=== PATIENT | male | born 1955 | race Caucasian/White ===

== ENCOUNTER 2018-10-10 06:01 | Inpatient (IN) | payer BC ==
[2018-10-02 11:19] LABS: Absolute Lymphocytes (CBC) 1.2 K/uL (0.7-4.9); Absolute Monocytes 0.5 K/uL (0.1-1.3); Basophils % 1.4 % (0-1.3); Eosinophils % 4.8 % (0-4.4); Hematocrit 43.8 % (39.6-49.0); Lymphocytes % 24.2 % (15.3-44.8); MPV 8.4 fL (7.6-11.3); Monocytes % 9.1 % (3.3-12.3); RBC Red Blood Cell Count 4.61 M/uL (4.33-5.43)
--- NOTE | 2018-10-02 11:27 | RAD REPORT ---
EXAM DESCRIPTION: Hitesh Chapman And Sydnee (2 Views)10/02/2018 11:08 am CLINICAL HISTORY: Preop for knee replacement COMPARISON: 2017 FINDINGS: Small opacity within the right lung base is unchanged from the prior exam and likely eithe r represents a right basilar lung granuloma or a bone island within the rib. The lungs appear clear of acute infiltrate. The heart is normal size IMPRESSION: No acute abnormalities displayed
[2018-10-02 11:36] LABS: BUN Blood Urea Nitrogen 13 mg/dL (7-18); Bicarbonate 30 mmol/L (21-32); Glucose Level 100 mg/dL (74-106); Potassium 4.3 mmol/L (3.5-5.1); Sodium Level 144 mmol/L (136-145)
--- NOTE | 2018-10-02 14:46 | EKG ---
Test Date: 2018-10-02 Test Time: 10:53:54 Sod Farmer: KENRICK MEASUREMENT RESULTS: Intervals: Rate: 56 CT: 170 QRSD: 104 QT: 442 QTc: 426 [place]: P: 46 CT: 170 QRS: -4 T: 48 INTERPRETIVE STATEMENTS: Sinus bradycardia with occasional premature ventricular complexes Incomplete right bundle branch block Borderline ECG Compared to ECG 07/27/2017 12:51:21 No significant changes Electronically Signed On 10-02-18 14:44:19 METAL SPINNER by Meek Mas
[2018-10-10] MEDS ORDERED: CEFAZOLIN 2GM (PREMIX IV) 2 GM/50 ML BAG ONE (06:32)
[2018-10-10] MEDS ORDERED: Ringers Lactate 1,000 ML IV ONE (06:32)
[2018-10-10] MEDS ORDERED: SCOPOLAMINE HYDROBROMIDE PATCH TD ONE (07:09)
[2018-10-10] MEDS ORDERED: ROPLVACAINE HCL 20 ML ONE (07:11)
[2018-10-10] MEDS ORDERED: FENTANYL CITR 250 MCG/5 ML ONE (07:11)
[2018-10-10] MEDS ORDERED: MIDAZOLAM HCL 2 MG/2 ML INJ ONE (07:11)
[2018-10-10] MEDS ORDERED: ROPIVACAINE HCL 0 ML ONE (07:12)
[2018-10-10] MEDS ORDERED: TRANEXAMIC ACID 1,000 MG in NA CHLORIDE 0.9% 50 ML IV SCH (07:15)
[2018-10-10] MEDS ORDERED: DEXAMETHASONE 4 MG/ML VIAL ONE (07:18)
[2018-10-10] MEDS ORDERED: PROPOFOL 200 MG/20 ML VIAL IV ONE (07:36)
[2018-10-10] MEDS ORDERED: LIDOCAINE 2% MPF 5 ML VIAL ONE (07:37)
[2018-10-10] MEDS: BUPIVACA 0.5%/EPI 0.0005%/PF 30 ML VIAL ONE ×2 (08:22→09:22)
[2018-10-10] MEDS: Ringers Lactate 1,000 ML IV ONE ×2 (09:21→09:27)
--- NOTE | 2018-10-10 10:18 | P.BOP ---
Preoperative diagnosis: left knee osteoarthritis Postoperative diagnosis: same Primary procedure: left total knee arthroplasty Technology Development Intern: NONE,NONE Estimated blood loss: 20 cc Specimen: left knee bone remnants Findings: see dictation Anesthesia: General Complications: None Implants: Biomet CR 80 femur, 83 tibia, 10 mm CR E poly Fluids & blood products: per anesthesia record; TT: 80 mins @ 300 mmHg Transferred to: Recovery Room Condition: Good
[2018-10-10] MEDS ORDERED: ONDANSETRON 4 MG/2 ML VIAL IV PRN (10:19)
[2018-10-10] MEDS ORDERED: DOCUSATE NA 100 MG CAP PO PRN (10:19)
[2018-10-10] MEDS: HYDROMORPHONE HCL 2 MG/ML inj ONE ×3 (10:27→10:50)
[2018-10-10] MEDS ORDERED: KETOROLAC 30 MG/ML INJ ONE (10:46)
[2018-10-10 10:50] LABS: Hematocrit 40.5 % (39.6-49.0)
[2018-10-10] MEDS: HYDROMORPHONE HCL 1 MG/ML INJ ONE ×2 (11:00→11:05)
--- NOTE | 2018-10-10 11:22 | RAD REPORT ---
EXAM DESCRIPTION: RAD - Knee Left 2 View - 10/10/2018 11:11 am CLINICAL HISTORY: Post Op Left total knee arthroplasty. COMPARISON: Knee Left 2 View dated 07/23/2018 FINDINGS: A left total knee arthroplasty is present. Skin dayne are noted anteriorly. A small amou nt of air is present in joint. No unexpected postoperative finding. IMPRESSION: Left TKA.
[2018-10-10 14:45] VITALS: BMI 27.1
[2018-10-10] MEDS: METOPROLOL XL 50 MG TAB PO SCH (17:50)
[2018-10-10] MEDS: CEFAZOLIN/SWI 2gm 2 GM/20 ML SYR IV SCH (17:52)
--- NOTE | 2018-10-10 19:56 | P.OP ---
Preoperative diagnosis: left knee osteoarthritis Postoperative diagnosis: same Primary procedure: left total knee arthroplasty Anesthesia: general Estimated blood loss: 20 cc Specimen: left knee bone remnants Findings: see dictation Operative Technique: Indication For Procedure: Jatin is a 62-year-old female, who presented to my clinic with leftt knee pain due to left knee osteoarthritis. The patient failed conservative treatment measures including home exercises, corticosteroid injections and viscosupplementation injections. He reported continued pain that affect his activities of daily living. He was recommended total knee arthoplasty. Description Of Procedure: After informed consent was obtained, the patient was identified in preop holding area. The left lower extremity was marked. The patient underwent a femoral nerve block performed by Anesthesia. He was then taken back to the operative room and transferred to the operating table in supine fashion and placed under general LMA anesthesia. The left lower extremity was then prepped and draped in usual sterile fashion. A time-out was initiated. Correct patient and procedure were confirmed and identified. The patient had received preoperative prophylactic antibiotics. The left lower extremity was exsanguinated and the tourniquet was inflated to 300 mmHg. Approximately, a 15 cm longitudinal incision was made over the anterior aspect of the knee centered over the patella. A standard median parapatellar approach was taken. The dissection was taken to the extensor mechanism. A median parapatellar arthrotomy was then performed. The patella was then everted and the fat pad and medial and lateral meniscus were excised. A lateral release was performed of the patella and osteophytes were removed using a rongeur. There was minimal cartilage wear on the undersurface of the patella and it was decided to not resurface the patella. Next, attention was taken to the femur, retractors were placed within the knee and the knee was held in flexion. A partial synovectomy was performed over the anterior aspect of the distal femur. A cutting block has been created preoperatively using MRI imaging and the block was then placed over the distal femur and then positioned and was stacked into place and pins were placed within the guide hole in the block. The distal femoral cutting guide was then placed over the pre-placed guide pin and the distal femur was cut after proper confirming using an Chriss wing. After this was performed, the anterior-posterior distal femoral cuts were made as well as the chamfer cut without complication. MCL and lateral remnants were resected as well as patellar tendon with knee retractors. Both remnants were then removed and sent to Pathology. Next attention was taken to the proximal tibia. The soft tissue medially was then elevated off the proximal tibia directly off bone using Bovie electrocautery. Pre-made cutting block was placed over the proximal tibia and once locked into position, pin were placed as well as the alignment ashleigh was used to ensure proper placement of the cutting guide. There was overall good alignment and position of the cutting guide. Pins were then placed. The cutting block was removed. The cutting guide was placed on the proximal tibia and again the chriss wing was then used to ensure proper depth of the cut. An osteotome then used to make cuts around the PCL and the saw was used to cut the proximal tibia and the proximal tibial cut was then removed with the meniscal grasper. Bone fragments were then removed and meniscectomies were completed. Next, the knee was held in 90 degrees of flexion and forward extension and a 10-mm guide was then selected and there was good overall fit and stability in flexion and extension. Next, the trials were placed, size 80 CR femur was placed and a size 83 tibia with a 10 mm poly. The knee was then ranged and had good stability, both in forward flexion and extension and had full range of motion. The knee was ranged and there was good stability of the patella as well as the rest of the knee. The tibia was marked with the Bovie electrocautery. The femur was drilled and once in proper position and the tibia was punched. Trial implants were then removed. The knee was then irrigated thoroughly with pulsed lavage normal saline. A 0.5% Marcaine with epinephrine was then used 30 cc for local anesthetic and to aid with postoperative pain control. The cement was prepared as well as the implant. Size 83 tibia was then placed followed by the size 80 CR femur. Excess cement was then removed using [place] elevator. A 10-mm trial poly was then placed and the knee was held in full extension as the cement hardened. Once the cement was completely hardened, the knee was ranged with good overall stability as well as good flexion and extension. Trial poly ethylene liner was removed and a final 10 mm CR-E poly was placed and locked in position. The knee was again irrigated thoroughly with normal saline. The tourniquet was let down. Hemostasis was achieved with Bovie electrocautery. The extensor mechanism was closed with #1 Vicryl in an interrupted fashion followed by #1 Vicryl in a running fashion. Fascia was then approximated using 0 Vicryl. Subcutaneous tissue was approximated used 2-0 Vicryl and the skin was approximated using dayne. Sterile dressings were applied. The patient was awakened and transferred to PACU in stable condition. Postoperative Plan: He will be weightbearing as tolerated. Physical therapy will aide with mobilization and pain management. CPM machine will be placed in the PACU postoperatively. Complications: None Drain(s): Urinary catheter Implants: Biomet size 80 CR femur, size 83 tibia, 10 mm CR E-poly Fluids & blood products: per anesthesia record; TT: 80 mins @ 300 mmHg Transferred to: Recovery Room Condition: Good
[2018-10-10] MEDS: OXYCODONE *CR* 10 MG TAB PO SCH (20:33)
[2018-10-10] MEDS: ATORVASTATIN 80 MG TAB PO SCH (20:33)
[2018-10-10] MEDS: MORPHINE 4 MG/ML SYR IV PRN (20:59)
[2018-10-10] MEDS: HYDROCODONE/APAP 7.5/325 MG TAB PO PRN (22:26)
[2018-10-11] MEDS: CEFAZOLIN/SWI 2gm 2 GM/20 ML SYR IV SCH ×2 (01:22→09:35)
[2018-10-11] MEDS: MORPHINE 4 MG/ML SYR IV PRN ×2 (01:31→06:00)
[2018-10-11] MEDS: HYDROCODONE/APAP 7.5/325 MG TAB PO PRN ×4 (03:54→16:16)
[2018-10-11] MEDS: ENOXAPARIN 30 MG/0.3 ML SQ SCH ×2 (05:55→17:41)
[2018-10-11 06:23] LABS: Absolute Lymphocytes (CBC) 0.8 K/uL (0.7-4.9); Absolute Monocytes 1.5 K/uL (0.1-1.3); Absolute Neutrophil 8.2 K/uL (1.8-8.0); Basophils % 0.5 % (0-1.3); Eosinophils % 0.2 % (0-4.4); Hematocrit 39.1 % (39.6-49.0); Lymphocytes % 7.7 % (15.3-44.8); MPV 8.3 fL (7.6-11.3); Monocytes % 14.1 % (3.3-12.3); RBC Red Blood Cell Count 4.13 M/uL (4.33-5.43)
[2018-10-11 06:43] LABS: BUN Blood Urea Nitrogen 15 mg/dL (7-18); Bicarbonate 29 mmol/L (21-32); Glucose Level 132 mg/dL (74-106); Potassium 4.4 mmol/L (3.5-5.1); Sodium Level 140 mmol/L (136-145)
[2018-10-11] MEDS ORDERED: MORPHINE 4 MG/ML SYR IV PRN (08:06)
--- NOTE | 2018-10-11 08:09 | P.PN ---
Subjective Date of Service: 10/11/18 Chief Complaint: s/p L TKA Block wore off overnight. Some increased pain this AM. Physical Examination - Vital Signs Temperature: 98.7 F Blood Pressure: 113/60 Pulse: 69 Respirations: 16 Pulse Ox (%): 97 - Physical Exam General: Alert, In no apparent distress Musculoskeletal: Other (LLE: dressing c/d/i; +EHL/FHL/GSC/TA; sensation grossly intact distally) - Studies Laboratory Data (last 24 hrs) 10/11/18 05:27: Sodium 140, Potassium 4.4, BUN 15, Creatinine 0.81, Glucose 132 H 10/11/18 05:27: WBC 10.6 D, Hgb 13.4 L, Hct 39.1 L, Plt Count 169 10/10/18 10:36: Hgb 13.8, Hct 40.5 Assessment And Plan - Plan Jatin is a 62 yo male s/p L TKA POD#1 -PT to mobilize; WBAT LLE -pain control; changed morphine to q 2 hrs; continue with orals including [place]/ oxycontin -lovenox for DVT prophylaxis -PT setup for post discharge
[2018-10-11] MEDS: OXYCODONE *CR* 10 MG TAB PO SCH ×2 (08:25→20:02)
[2018-10-11] MEDS: CELECOXIB 100 MG CAPSULE PO SCH (08:25)
[2018-10-11] MEDS: METOPROLOL XL 50 MG TAB PO SCH (17:42)
[2018-10-11] MEDS: ATORVASTATIN 80 MG TAB PO SCH (20:02)
[2018-10-12] MEDS: HYDROCODONE/APAP 7.5/325 MG TAB PO PRN ×4 (00:19→23:31)
[2018-10-12] MEDS: ENOXAPARIN 30 MG/0.3 ML SQ SCH ×2 (05:37→17:05)
[2018-10-12] MEDS: CELECOXIB 100 MG CAPSULE PO SCH (09:00)
[2018-10-12] MEDS: OXYCODONE *CR* 10 MG TAB PO SCH ×2 (09:00→20:20)
--- NOTE | 2018-10-12 09:12 | P.PN ---
Subjective Date of Service: 10/12/18 Chief Complaint: s/p L TKA Subjective: Ambulating, Improving, Working w/ PT Pain improved. Physical Examination - Vital Signs Temperature: 97.3 F Blood Pressure: 126/64 Pulse: 63 Respirations: 18 Pulse Ox (%): 96 - Physical Exam General: Alert, In no apparent distress Musculoskeletal: Other (RLE: incision c/d/i; mild swelling of right knee; +EHL/ FHL/GSC/TA; sensation grossly intact distally) Assessment And Plan - Plan Jatin is a 62 yo male s/p L TKA POD#2 -PT to mobilize; WBAT LLE -pain control improved; only taking orals at this time -lovenox for DVT prophylaxis -possible d/c home today if mobilizes well with PT
--- NOTE | 2018-10-12 09:21 | P.DS ---
Admission Date: 10/10/18 Discharge Date: 10/12/18 Disposition: DC HOME/HOME HEALTH CARE Discharge Condition: GOOD Reason for Admission: s/p L TKA Consultations: none Procedures: left total knee arthroplasty on 10/10/2018 Brief History of Present Illness: Jatin is a 62 yo male with left knee osteoarthritis and h/o coronary artery disease. He underwent L TKA on 10/10/18 and was admitted to the floor postop in stable condition. Hospital Course: Jatin was admitted to the floor postoperatively on 10/10/2018 in stable condition. His vital signs remained stable as well as his H/H. Physical therapy was consulted and the patient mobilized well with PT. He was discharged on 10/12/2018 in stable condition. He was given lovenox while in the hospital for DVT prophylaxis and will be taking Xarelto on discharge. Vital Signs/Physical Exam: Temp Pulse Resp BP Pulse Ox 97.3 F 63 18 126/64 96 10/12/18 09:12 10/12/18 09:12 10/12/18 09:12 10/12/18 09:12 10/12/18 09:12 Laboratory Data at Discharge: WBC 10.6 K/uL (4.3-10.9) D 10/11/18 05:27 Hgb 13.4 g/dL (13.6-17.9) L 10/11/18 05:27 Hct 39.1 % (39.6-49.0) L 10/11/18 05:27 Plt Count 169 K/uL (152-406) 10/11/18 05:27 PT 11.8 SECONDS (9.5-12.5) 10/02/18 10:48 INR 1.00 10/02/18 10:48 APTT 31.4 SECONDS (24.3-36.9) 10/02/18 10:48 Sodium 140 mmol/L (136-145) 10/11/18 05:27 Potassium 4.4 mmol/L (3.5-5.1) 10/11/18 05:27 BUN 15 mg/dL (7-18) 10/11/18 05:27 Creatinine 0.81 mg/dL (0.55-1.3) 10/11/18 05:27 Glucose 132 mg/dL (74-106) H 10/11/18 05:27 Home Medications: Atorvastatin Calcium 80 mg PO DAILY 10/06/16 Multivitamin [Multivitamins] 1 each PO DAILY 10/06/16 Metoprolol Succinate [Toprol Xl*] 25 mg PO DAILY 02/02/17 Ubidecarenone/Vitamin E Mixed [Pjm02-Ium E 200 mg-20 Unit Sfg] 1 each PO DAILY 02/02/17 Ferrous Fumarate/Vit Bcomp&C [Super B-Complex Caplet] 1 each PO DAILY 10/02/18 Hydrocodone 7.5/APAP 325 [[place] 7.5/325 mg*] 1 tab PO Q4H PRN tab 10/12/18 Patient Discharge Instructions: keep dressing clean and dry; WBAT LLE; begin Xarelto on 10/13 and take daily in the morning Diet: Regular Activity: Weight bearing as tolerated Followup: Geovany Waller MD [ACTIVE - CAN ADMIT] - 1-2 Weeks
[2018-10-12] MEDS: METOPROLOL XL 50 MG TAB PO SCH (17:02)
[2018-10-12] MEDS: ATORVASTATIN 80 MG TAB PO SCH (20:21)
[2018-10-13 00:19] VITALS: O2SAT 97
[2018-10-13] MEDS: HYDROCODONE/APAP 7.5/325 MG TAB PO PRN ×2 (04:13→12:14)
[2018-10-13] MEDS: ENOXAPARIN 30 MG/0.3 ML SQ SCH (06:10)
[2018-10-13] MEDS: CELECOXIB 100 MG CAPSULE PO SCH (08:49)
[2018-10-13] MEDS: OXYCODONE *CR* 10 MG TAB PO SCH (08:49)
--- NOTE | 2018-10-13 09:49 | P.PN ---
Subjective Date of Service: 10/13/18 Chief Complaint: s/p L TKA Subjective: Ambulating, Improving, Working w/ PT Pain improved. Reports some difficulty with PT yesterday and did not feel safe to go home yesterday. Ambulating with PT this morning and states that he feels ready to go home today. Physical Examination - Vital Signs Temperature: 97.7 F Blood Pressure: 128/77 Pulse: 85 Respirations: 18 Pulse Ox (%): 97 - Physical Exam General: Alert, In no apparent distress Musculoskeletal: Other (LLE: incision c/d/i; +EHL/FHL/GSC/TA; mild swelling of the left leg) Assessment And Plan - Plan Jatin is a 62 yo male s/p L TKA POD#3 -PT to mobilize; WBAT LLE -pain control improved; only taking orals at this time -lovenox for DVT prophylaxis; transition to Xarelto at home -d/c home today
[2018-10-13 12:57] VITALS: BP 125/77; TEMP 98.3
== END 2018-10-13 12:32 | disposition home health service (06) | DRG 470 ==
LOC: OR 06:01 → 2ND 11:02
PROVIDERS: ADMIT Orthopaedic Surgery Sports Medicine; ATTEND Orthopaedic Surgery Sports Medicine
PROC: 0SRD069 Replacement of Left Knee Joint with Oxidized Zirconium on Polyethylene Synthetic Substitute, Cemented, Open Approach (ICD-10-PCS; principal; 2018-10-10 07:30)
DX: M17.12 Unilateral primary osteoarthritis, left knee (principal); I25.10 Atherosclerotic heart disease of native coronary artery without angina pectoris; Z85.828 Personal history of other malignant neoplasm of skin
CPT/HCPCS: 36415; 71046; 80048; 85014; 85018; 85025; 85610; 85730; 88304; 88305; 88311; 93005; 97116; 97139; 97163; 97530; J0690; J1170; J1650; J2250; J2704; J2795; J3010